=== PATIENT | female | born 1990 | race Two or more races ===

== ENCOUNTER 2016-11-18 16:00 | Emergency (ER) | payer SELFPAY ==
--- NOTE | ~2016-11-18 | EKG ---
PATIENT: PARK BUCIO UNIT #: [id number] Ventricular Rate: 78 BPM Atrial Rate: 78 BPM P-R Interval: 140 ms QRS Duration: 72 ms Q-T Interval: 352 ms QTC Calculation(Bezet): 401 ms P Tamms: 18 degrees Calculated R Tamms: 65 degrees Calculated T Tamms: 0 degrees Diagnosis Line: Normal sinus rhythm Diagnosis Line: Normal ECG Diagnosis Line: When compared with ECG of 10-JUN-2016 18:43, Diagnosis Line: No significant change was found Diagnosis Line: Confirmed by LULU SANTORO MD ([id number]) on Diagnosis Line: 11/19/2016 1:49:25 PM INTERPRETING MD: CECILIA
--- NOTE | ~2016-11-18 | CR72 ---
[facility] A Service of [facility] & [facility] RADIOLOGY TEXT RESULTS PATIENT: PARK BUCIO LOCATION: [facility] : [birth year] UNIT #: [id number] AGE: [address]: Jc Chatterjee MD SEX: F ORDER DR: [id number] [facility] [address] [place], [place] [address] [id number] MR#: [id number] Acc #: [id number] NAME: PARK BUCIO : 1990 SEX: F STUDY DATE/TIME: 11/18/2016 18:15 UNIT: [facility] ROOM: STUDY DESCRIPTION: CR Chest Single View Portable Attending Physician: Jc Chatterjee M.D. Ordering Physician: Jc Chatterjee M.D. [facility] Phys[facility] This report is preliminary unless electronic signature is present EXAM Portable chest 11/18/2016 HISTORY 26-year-old female with shortness of air and chest pain beginning today. COMPARISON Chest 06/01/2016 FINDINGS Frontal chest demonstrates clear lungs. No pleural effusion or pneumothorax. Heart size and mediastinum are within normal limits. Pulmonary vasculature unremarkable. IMPRESSION No acute cardiopulmonary findings Dictated by... Esteban Wyatt M.D. THIS IS AN ELECTRONICALLY VERIFIED REPORT Esteban Wyatt M.D. at 11/21/2016 7:18 AM EDILSON/kristine TD: 11/19/2016 04:20 JOB #: [id number] MEDICAL IMAGING REPORT Page 1 of 1 COPY
[2016-11-18 17:18] LABS: BASOPHIL# 0.1 X10e3 (0-0.3); BASOPHIL% 0.7 % (0-2.5); EOSINOPHIL# 0.5 X10e3 (0-0.7); EOSINOPHIL% 5.3 % (0.0-7.0); HEMATOCRIT 37.8 % (35.0-45.0); HEMOGLOBIN 12.3 gm/dL (12.0-16.0); LYMPHOCYTE# 2.9 X10e3 (1.0-3.5); LYMPHOCYTE% 30.6 % (17.0-45.0); MEAN CELL VOLUME 86.3 FL (83-96); MEAN CORPUSCULAR HEMOGLOBIN 28.1 PG (28-34); MEAN CORPUSCULAR HGB CONC 32.6 g/dL (30-36); MEAN PLATELET VOLUME 7.7 FL (6.5-11.5); MONOCYTE% 10.4 % (3.0-12.0); PLATELET COUNT 379 X10e3 (140-420); RED BLOOD COUNT 4.38 X10e (3.90-5.30); WHITE BLOOD COUNT 9.5 X10e3 (4.0-10.5)
[2016-11-18 17:20] LABS: DIFF IND NO
[2016-11-18 17:44] LABS: ALKALINE PHOSPHATASE 55 U/L (32-92); ALT (SGPT) 17 U/L (10-40); AST (SGOT) 18 U/L (10-42); BILIRUBIN,TOTAL 0.2 mg/dL (0.2-2.0); BLOOD UREA NITROGEN 9 mg/dL (9-23); BUN/CREATININE RATIO 12.85; CARBON DIOXIDE 25 mmol/L (22-31); CHLORIDE 105 mmol/L (100-111); CREATININE SERUM 0.7 mg/dL (0.6-1.4); GLOM FILT RATE Estimated 121.3 mL/min (>60); GLUCOSE FASTING 96 mg/dL (70-110); POTASSIUM 3.4 mmol/L (3.5-5.1); PROTEIN TOTAL SERUM 7.5 g/dL (6.0-8.3); SODIUM 136 mmol/L (135-145)
[2016-11-18 17:51] LABS: POC - CKMB <1.0 ng/mL (0.0-7.9); POC - TROPONIN <0.05 ng/mL (<=0.05)
[2016-11-18 17:59] LABS: BILIRUBIN, DIRECT <0.1 mg/dL (0.0-0.2); BILIRUBIN,INDIRECT 0.1 mg/dL (0.0-0.9)
[2016-11-18 18:00] LABS: URINE SOURCE CLEAN CATCH
[2016-11-18 18:13] LABS: URINE APPEARANCE CLEAR; URINE BILIRUBIN NEG (NEG); URINE BLOOD NEG (NEG); URINE COLOR YELLOW; URINE GLUCOSE NEG (NEG); URINE KETONE NEG (NEG); URINE LEUKOCYTE ESTERASE 2+ (NEG); URINE NITRATE NEG (NEG); URINE PH 7.5 (5-8); URINE PROTEIN NEG (NEG); URINE SPECIFIC GRAVITY 1.021 (1.003-1.035)
[2016-11-18 18:16] LABS: CULTURE INDICATED? YES; URBCS1 AUWI 0-2 /[HPF] (0-2); URINE BACTERIA AUWI 1+ (NEGATIVE); URINE SQUAMOUS EPITHELIAL CELL OCC /[HPF]
[2016-11-18 18:24] LABS: AMPHETAMINE NEG (NEG); BARBITURATES NEG (NEG); BENZODIAZEPINES NEG (NEG); COCAINE NEG (NEG); MARIJUANA NEG (NEG); OPIATES NEG (NEG); TRICYCLIC ANTIDEPRESSANTS NEG (NEG); U METHADONE NEG (NEG)
[2016-11-18 20:07] LABS: POC - CKMB <1.0 ng/mL (0.0-7.9); POC - TROPONIN <0.05 ng/mL (<=0.05)
== END 2016-11-18 20:13 | disposition home or self-care (01) ==
LOC: CED 16:00
PROVIDERS: Emergency Medicine
DX: R42 Dizziness and giddiness (principal)
CPT/HCPCS: 36415; 71010; 80048; 80076; 80307; 81003; 82553; 82947; 84484; 84703; 85025; 87086; 93005; 96360; 99284